=== PATIENT | male | born 1945 | race Caucasian/White ===

== ENCOUNTER 2020-07-01 11:13 | Outpatient (CLI) | payer MEDICARE, OTHER ==
[2020-07-01 12:46] LABS: Hemoglobin 14.2 g/dL (13.5-17.5)
[2020-07-01 13:37] LABS: Anion Gap 16 mmol/L (10-20); BUN (Urea Nitrogen) 17 mg/dL (8.4-25.7); Calc. Creatinine Clearance 0 mL/min (70-130); Carbon Dioxide 28 mmol/L (23-31); Chloride 102 mmol/L (98-107); Glucose 95 mg/dL (83-110); Potassium 4.1 mmol/L (3.5-5.1); Sodium 142 mmol/L (136-145)
[2020-07-01 18:49] LABS: SARS-CoV-2 PCR by NAA Not Detected (NotDetected)
== END 2020-07-01 11:14 | disposition home or self-care (01) ==
LOC: LABBT 11:13
PROVIDERS: ATTEND Student in an Organized Health Care Education/Training Program
DX: Z01.818 Encounter for other preprocedural examination (principal); R22.1 Localized swelling, mass and lump, neck; Z20.822 Contact with and (suspected) exposure to COVID-19
CPT/HCPCS: 80048; 85014; 85018; 93005; U0003; U0005; 87635; 93010

== ENCOUNTER 2020-07-06 07:19 | Day surgery (SDC) | payer MEDICARE, OTHER ==
[2020-07-05 14:06] VITALS: BMI 32.8
[2020-07-06] MEDS ORDERED: EPINEPHrine 1 MG/ML AMP ONE (08:27)
[2020-07-06] MEDS ORDERED: Fentanyl 100 MCG/2 ML VIAL ONE (08:30)
[2020-07-06] MEDS ORDERED: Lidocaine 1% PF 5 ML VIAL ONE (09:13)
[2020-07-06] MEDS ORDERED: Succinylcholine 200 MG/10 ml SYRINGE FS ONE (09:13)
[2020-07-06] MEDS ORDERED: PROPOFOL 200 MG/20 ML VIAL ONE (09:13)
[2020-07-06] MEDS ORDERED: Ondansetron PF 4 MG/2 ML Vial ONE (09:13)
[2020-07-06] MEDS ORDERED: Dexamethasone 20 MG/5 ML VIAL ONE (09:13)
[2020-07-06] MEDS ORDERED: AFRIN NASAL MIST 15 ML BOT ONE (09:31)
== END 2020-07-06 11:44 | disposition home or self-care (01) ==
LOC: SDC 07:19
PROVIDERS: ATTEND Student in an Organized Health Care Education/Training Program
PROC: 0CBM8ZX Excision of Pharynx, Via Natural or Artificial Opening Endoscopic, Diagnostic (ICD-10-PCS; principal; 2020-07-06)
DX: C01 Malignant neoplasm of base of tongue (principal); I10 Essential (primary) hypertension; J45.909 Unspecified asthma, uncomplicated; F17.210 Nicotine dependence, cigarettes, uncomplicated; Z79.899 Other long term (current) drug therapy; Z88.8 Allergy status to other drugs, medicaments and biological substances
CPT/HCPCS: 88305; 88341; 88342; J0171; J1100; J2405; J2704; J3010

== ENCOUNTER 2020-07-23 08:04 | Outpatient (CLI) | payer MEDICARE, OTHER | END 2020-07-23 08:05 | disposition home or self-care (01) | LOC: PET 08:04 | PROVIDERS: ATTEND Internal Medicine Hematology & Oncology | DX: C01 Malignant neoplasm of base of tongue (principal); I71.4 Abdominal aortic aneurysm, without rupture; R59.0 Localized enlarged lymph nodes; M47.816 Spondylosis without myelopathy or radiculopathy, lumbar region | CPT/HCPCS: 78815; A9552 ==

== ENCOUNTER 2021-01-07 09:37 | Outpatient (CLI) | payer MEDICARE, OTHER | END 2021-01-07 09:38 | disposition home or self-care (01) | LOC: PET 09:37 | PROVIDERS: ATTEND Radiology Radiation Oncology | DX: C01 Malignant neoplasm of base of tongue (principal); I71.4 Abdominal aortic aneurysm, without rupture; K57.30 Diverticulosis of large intestine without perforation or abscess without bleeding; M47.819 Spondylosis without myelopathy or radiculopathy, site unspecified | CPT/HCPCS: 78815; A9552 ==

== ENCOUNTER 2025-01-01 09:30 | Outpatient (CLI) | payer MEDICARE | END 2025-01-01 09:31 | disposition home or self-care (01) | LOC: PET 09:30 | PROVIDERS: ATTEND Radiology Radiation Oncology | DX: R91.1 Solitary pulmonary nodule (principal); I71.40 Abdominal aortic aneurysm, without rupture, unspecified | CPT/HCPCS: 78815; A9552 ==